=== PATIENT | male | born 1990 | race Two or more races ===

== ENCOUNTER → 2016-10-15 | Outpatient (REF) | payer OTHER | LOC: M SMT 08:30 | PROVIDERS: ATTEND Urology | DX: Z30.2 Encounter for sterilization (principal) ==

== ENCOUNTER → 2016-11-21 | Outpatient (REF) | payer OTHER ==
[2016-11-21 13:43] LABS: IMMMOTILE SPERM CENTRIFUGED ABSENT (ABSENT); IMMOTILE SPERM ABSENT (ABSENT); MOTILE SPERM ABSENT (ABSENT); MOTILE SPERM CENTRIFUGED ABSENT (ABSENT)
== END ==
LOC: M SMT 13:12
PROVIDERS: ATTEND Urology
DX: Z98.52 Vasectomy status (principal)